=== PATIENT | female | born 1935 | race Caucasian/White ===

== ENCOUNTER 2024-06-26 11:58 | Emergency (ER) | payer MEDICARE, BC, SELFPAY ==
[2024-06-26 11:58] VITALS: BMI 22.6
[2024-06-26 12:30] VITALS: BP 110/62; PULSE 73; RESP 19; TEMP 37.2; O2SAT 97; BMI 22.0
--- NOTE | 2024-06-26 13:21 | EDNOTE_ITS ---
ED Abdominal Pain RME/HPI General Chief Complaint: Abdominal Pain Stated complaint: bladder spasms x1wk on antibiotic for UTI Time seen by provider: 06/26/24 12:28 Arrival date/time: 06/26/24 11:58 RME / HPI RME / HPI narrative: Patient is a 89 year old female presenting to the ED complaining of dysuria x3 days, states she had a phone visit with her PCP and got prescribed with Bactrim. Is currently on third day however states she still feels she has cramps in her her bladder. History includes cystocele, repaired 6 years ago atrophy. Denies fevers, chills, nausea,vomiting, diarrhea, constipation, urinary symptoms. Related Data Home Medications ?Medication ?Instructions ?Recorded ?Confirmed metoprolol succinate 50 mg 50 mg PO BID High Blood Pressure 03/23/14 02/09/20 tablet,extended release 24 hr ##0 (Toprol XL) lansoprazole 30 mg capsule,delayed 30 mg PO QDAY ##0 01/19/16 02/09/20 release (Prevacid) bupropion HCl 300 mg 24 hr tablet, 300 mg PO QAM 05/15/18 02/09/20 extended release ezetimibe 10 mg tablet 10 mg PO QDAY 05/15/18 02/09/20 metformin 500 mg tablet 500 mg PO DAILY 05/15/18 02/09/20 simvastatin 40 mg tablet 1 tab PO DAILY 08/28/18 02/09/20 gabapentin 100 mg capsule 300 mg PO TID 08/02/19 02/09/20 amlodipine 10 mg tablet 10 mg PO QDAY 02/09/20 02/09/20 calcifediol 30 mcg capsule,24 30 mcg PO QDAY 02/09/20 02/09/20 hr,extended release (Rayaldee) Previous Rx's ?Medication ?Instructions ?Recorded ciprofloxacin HCl 500 mg tablet 500 mg PO BID 5 days #10 tabs 06/26/24 tolterodine 2 mg capsule,extended 2 mg PO QDAY #10 caps 06/26/24 release 24 hr (Detrol LA) Allergies Allergy/AdvReac Type Severity Reaction Status Date / Time adhesive tape Allergy Blister Verified 06/26/24 12:01 enalapril Allergy Swelling Verified 06/26/24 12:01 of Lip/Tongue/Throat Review of Systems Review of Systems Narrative Review of Systems: Gen: No fever, no chills, no weight loss EYES: No discharge, no visual changes, no pain HEENT: No ear pain, no congestion, no sore throat PULM: No shortness of breath, no cough, no congestion CV: No chest pain, no dyspnea on exertion, no palpitations GI: No nausea, no vomiting, no diarrhea, no pain, no constipation :+dysuria. No frequency, no urgency, Musc/skel: No joint pain, no back pain Skin: No rash Psyc: No hallucinations, no depression Heme/Lymph: No easy bleeding or bruising tendencies Neuro: No weakness, no headache Past Medical History Past Medical History NEUROLOGIC: Positive Migraine and Head Trauma; Negative Neurological Disorders, Cerebrovascular Accident, Transient Ischemic Attacks (TIA), Dementia, Parkinson's Disease, Seizures, Epilepsy, Spina Bifida, Paralysis, Peripheral Neuropathy, Subdural Hematoma, Spinal Cord Injury or Traumatic Brain Injury CARDIAC: Positive Hypercholesterolemia, Hypertension and Varicose Veins; Negative Cardiac Disorders, Myocardial Infarction, Peripheral Vascular Disease, Congestive Heart Failure, Valvular Heart Disease, Rheumatic Fever, Edema, Pericarditis or Cellulitis RESPIRATORY: Positive Pneumonia (07/2019); Negative Chronic Obstructive Pulmonary Disease (COPD), Asthma, Pulmonary Fibrosis, Tuberculosis, Pulmonary Embolism, Pulmonary Edema or Sleep Apnea GASTROINTESTINAL: Positive Gastrointestinal Disorders, Colitis, Diverticulitis, Hemorrhoids and Gastroesophageal Reflux Disease; Negative Hepatitis, Cirrhosis, Pancreatitis, Celiac Disease, Gall Bladder Disease, Gastrointestinal Bleed, Esophageal Varices, Fraser's Esophagus, Ulcerative Colitis, Ulcer, Colorectal Cancer, Irritable Bowel, Crohn's Disease, Obstructive Bowel, Hiatal Hernia or Obesity GENITOURINARY: Positive Genitourinary Disorders, Renal Disease (kidney stone) and Kidney Stones; Negative Polycystic Kidney Disease, Neurogenic Bladder, Inguinal Hernia, Dialysis, Prostate Cancer or Benign Prostatic Hyperplasia REPRODUCTIVE: Positive Previous Pregnancies and Uterine Prolapse; Negative Breast Cancer, Endometriosis, Pelvic Inflammatory Disease or Testicular Cancer MUSCULOSKELETAL: Positive Musculoskeletal Disorders, Arthritis, Carpal Tunnel Syndrome and Fractures; Negative Bone Cancer, Rheumatoid Arthritis, Osteoporosis, Degenerative Disk Disease, Gout, Scoliosis, Fibromyalgia, Degenerative Joint Disease, Osteomyelitis or Poliovirus ENT: Positive Cataracts and Head Trauma; Negative Glaucoma, Blind, Retinal Detachment, Macular Degeneration, Ear Infection, Deafness or Eye Prosthesis ENDOCRINE: Positive Endocrine Disorders and Diabetes Mellitus Type 2; Negative Diabetes Mellitus Type 1, Hyperthyroidism, Hypothyroidism, Parathyroid Disease, Pituitary Disease, Systemic Lupus Erythematosus, Syndrome of Inappropriate Antidiuretic Hormone (SIADH) or Graves' Disease HEMATOLOGIC: Positive Blood Disorders and Anemia; Negative Leukemia, Hemophilia, Thalassemia, Sickle Cell Disease or Clotting Problems PSYCHO/SOCIAL: Positive Depression and Anxiety; Negative Psychiatric Problems, Schizophrenia, Recreational Drug Use, Bipolar Disorder, Behavior Problems, Self-Mutilation, Attention Deficit Disorder, Attention Deficit Hyperactivity Disorder, Depression, Post Traumatic Stress Disorder or Eating Disorder OTHER HISTORY: Positive Hospitalization, Blood Transfusions, Blood Transfusion Reaction, Chicken Pox, Measles and Pertussis; Negative Autoimmune Disease, Down Syndrome, Autism, Developmental Delay, Shingles, Falls, Anesthesia Reactions, Organ Transplant, Chemotherapy, Radiation Therapy, Hyperbaric Therapy, MRSA, VRSA, Vancomycin-Resistant Enterococci, Breast Cancer, Cervical Cancer, Colorectal Cancer, Lung Cancer, Ovarian Cancer, Prostate Cancer or Testicular Cancer Family History FAMILY HISTORY: Positive Family Psychiatric Problems, Family Cardiac Disorders, Family Cancer and Family Surgery; Negative Family Respiratory Disorders, Family Gastrointestinal Problems or Family Anesthesia Reaction Surgical History SURGICAL: Positive Eye Surgery, Abdominal Surgery, Lumpectomy, Hysterectomy, Tubal Ligation and Section; Negative Cardiac Surgery, Pacemaker, Angiogram, Endocrine Surgery, Thyroidectomy , Ear Surgery, Nephrectomy, Transurethral Resection, Neurologic Surgery, Brain Shunt or Organ Transplant Social History SMOKING STATUS: Current every day smoker SECOND HAND EXPOSURE: Yes SUBSTANCE USE: does not use ED Exam Narrative Physical exam: GEN. APPEARANCE: The patient is alert awake oriented X-3 in minimal distress, lying down comfortably, does not look ill/toxic. Patient has good eye contact. Patient is cooperative. VITALS: All vitals were reviewed and the pulse ox is 97% on room air which is normal according to my interpretation. HEENT: Normocephalic, atraumatic. Pupils are equal and reactive. Oral mucosa is moist. Patent Nares NECK: Supple, nontender, no thyromegaly, no meningismus, no JVD, no step offs CHEST: Symmetrical, atraumatic, and with equal expansion , Nontender on palpation no deformity and no crepitus. CARDIOVASCULAR: Heart regular rhythm no murmur or gallop rub or extra beats. LUNGS: Clear to auscultation bilaterally with symmetrical chest rise. No laboring tachypnea or wheezing. No intercostal subcostal retraction. No rales and no rhonchi. ABDOMEN: Soft, flat, suprapubic tenderness. , no guarding or rebound tenderness. There are no abnormal masses palpated. Active and normal bowel sounds. EXTREMITIES: Nontender. No edema. No cyanosis. Patient is able to move all 4 extremities well, with full ROM and good CSM. SKIN: Warm and dry, no jaundice or rashes noted. MUSCULOSKELETAL: No lubar or midline bony tenderness. There is no CVA tenderness. No paraspinal muscle spasm or tenderness. NEURO: Patient is YU x 4, Cranial nerves II through XII grossly intact. There is no focal neurologic deficits noted. GCS is 15, PNS and CARDIOLOGY TECHNICIAN appear grossly intact. PSYCHIATRIC: Patient is in normal mood and affect, cooperative, no SI or HI or hallucinations. Course Quality Measures none Orders Category Date Time Status UA, C/S IF [Urinalysis, C/S if Indicated] Stat Lab 06/26/24 13:27 Completed Urine Culture Stat Lab 06/26/24 15:08 Ordered Vital Signs Vital signs: Vital Signs Temperature 98.9 F 06/26/24 12:30 Pulse Rate 73 06/26/24 12:30 Respiratory Rate 19 06/26/24 12:30 Blood Pressure 110/62 06/26/24 12:30 Pulse Oximetry (%) 97 06/26/24 12:30 Oxygen Delivery Method Room Air 06/26/24 12:30 Abdominal Pain MDM MDM Narrative MDM Narrative:: Patient has a UTI that has not responded to Bactrim. The specimen was submitted for culture. Patient will be treated for bladder spasms as well. Follow-up with primary care provider. Patient data External records reviewed:: [facility] previous records Clinical information provided by:: patient Social determinants that could affect healthcare access:: none Patient has the following chronic illnesses:: atrophic vaginitis, cystocele and UTI How is presenting disease/condition affected by chronic disease/condition?: exacerbated by Evaluation data The following diagnostics were reviewed and interpreted by me:: lab results Lab and/or radiology exams considered but not ordered:: none Interpretation Summary: see above Medications / Prescriptions Medications or Prescriptions considered but not ordered:: none Medication administrations:: see above Consultations Consultation(s) initiated? (list below): No Diagnosis Differential diagnosis abdominal pain: other Most likely diagnosis given after review of the tests above:: UTI Admission Indicated Admission indicated?: not indicated Admission Request Was there a request for admission?: No Disposition Plan Disposition Plan: Discharge Discharge Attestation Discharge Attestation: The patient and all family members were given an opportunity to ask questions and understood the discharge instructions. Discharge instructions specifically effects, indications for sooner follow up or return to the emergency department, and the expected course of current diagnosis. Patient condition: Stable Discharge Plan Plan Patient Disposition: HOME (Self Care) Patient condition on transfer: Stable Prescriptions/Referrals Prescriptions/Med Rec: New tolterodine [Detrol LA] 2 mg capsule,extended release 24hr 2 mg PO QDAY Qty: 10 0RF ciprofloxacin HCl 500 mg tablet 500 mg PO BID 5 Days Qty: 10 0RF No Action metoprolol succinate [Toprol XL] 50 MG tablet extended release 24 hr 50 mg PO BID Qty: 0 lansoprazole [Prevacid] 30 MG capsule,delayed release(DR/EC) 30 mg PO QDAY Qty: 0 Patient Comments: TO SUPPRESS GASTRIC ACID SECRETION simvastatin 40 mg Tablet 1 tab PO DAILY gabapentin 100 mg Capsule 300 mg PO TID amlodipine 10 mg Tablet 10 mg PO QDAY Rayaldee 30 mcg Capsule,Extended Release 24 Hr 30 mcg PO QDAY metformin 500 mg Tablet 500 mg PO DAILY ezetimibe 10 mg Tablet 10 mg PO QDAY bupropion HCl 300 mg Tablet Extended Release 24 Hr 300 mg PO QAM Referrals: Keith Page MD [Primary Care Provider] - In 1 week Problem List Clinical Impression: Acute UTI, Bladder spasm Patient/Caregiver Discharge Instructions Print Language: Citizen Of [place] Stand Alone Forms: Cornelia Award Info., Patient Portal Info Letter
[2024-06-26 13:35] LABS: Collection Type, Urine Clean Catch
[2024-06-26 14:00] LABS: Bacteria,Urine 4+; Bilirubin,Urine Negative (Negative); Blood,Urine 1+ (Negative); Culture Indicated,Urine Contaminated; Glucose, Urine Negative (Negative); Ketones,Urine Negative (Negative); Leukocyte Esterase,Urine Positive (Negative); Nitrite,Urine Positive (Negative); PH,Urine 6.5 (5.0-7.0); Protein,Urine 2+ (Neg - Trace); RBC,Urine 54 /hpf (0-3); Specific Gravity,Urine 1.013 (1.001-1.035); Squamous Epithelial Cell,Urine 50 /hpf (0-5); Transitional Epi Cells,Urine 1 /hpf (0-5); Urobilinogen,Urine Negative mg/dL (0.0-1.0); WBC,Urine 5051 /hpf (0-5)
[2024-06-26 14:01] LABS: Color,Urine Lt-Yellow (Lt Yel-Yel)
[2024-06-26 14:02] LABS: Clarity,Urine Turbid (Clear/Hazy)
== END 2024-06-26 15:25 | disposition home or self-care (01) ==
PROVIDERS: Emergency Provider Emergency Medicine; PCP Emergency Medicine
DX: N39.0 Urinary tract infection, site not specified (principal); N32.89 Other specified disorders of bladder
CPT/HCPCS: 81001; 87086; 99283

== ENCOUNTER → 2024-06-29 | Outpatient (CLI) | payer MEDICARE, BC, SELFPAY ==
[2024-06-29 13:08] LABS: Collection Type, Urine Clean Catch
[2024-06-29 13:26] LABS: Basophils % (Auto) 0 % (0-2.5); Eosinophils # (Auto) 0.1 Thou/mm3 (0.0-0.5); Eosinophils % (Auto) 2 % (0-10); Hematocrit 35.5 % (36.0-46.0); Hemoglobin 11.4 g/dL (12.0-16.0); Immature Granulocytes % (Auto) 0 % (0-0); Immature Granulocytes Auto 0.02 Thou/mm3 (0.00-0.00); Lymphocytes # (Auto) 2.6 Thou/mm3 (1.0-4.8); Lymphocytes % (Auto) 41 % (10-50); Mean Corpuscular HGB Conc 32.1 g/dl (31.0-37.0); Mean Corpuscular Hemoglobin 28.6 pg (25.0-35.0); Mean Corpuscular Volume 89 fL (80-100); Monocytes # (Auto) 0.5 Thou/mm3 (0.0-0.8); Monocytes % (Auto) 8 % (0-12); Neutrophils # (Auto) 3.2 Thou/mm3 (1.8-7.7); Neutrophils % (Auto) 49 % (37-80); Nucleated Red Blood Cell % 0 /100 WBC (0); Platelet Count 204 Thou/mm3 (140-440); RDW Standard Deviation 46.1 fL (36.4-46.3); Red Blood Count 3.98 Miln/mm3 (4.00-5.20); White Blood Count 6.5 Thou/mm3 (3.6-11.0)
[2024-06-29 13:28] LABS: Bilirubin,Urine Negative (Negative); Blood,Urine Negative (Negative); Clarity,Urine Clear (Clear/Hazy); Color,Urine Yellow (Lt Yel-Yel); Glucose, Urine Negative (Negative); Ketones,Urine Negative (Negative); Leukocyte Esterase,Urine Positive (Negative); Nitrite,Urine Negative (Negative); PH,Urine 6.5 (5.0-7.0); Protein,Urine Negative (Neg - Trace); RBC,Urine 6 /hpf (0-3); Specific Gravity,Urine 1.015 (1.001-1.035); Squamous Epithelial Cell,Urine 12 /hpf (0-5); Urobilinogen,Urine Negative mg/dL (0.0-1.0); WBC,Urine 17 /hpf (0-5)
[2024-06-29 13:45] LABS: Albumin, Serum 4.4 gm/dL (3.4-4.8); Anion Gap 7 (7-16); BUN/Creatinine Ratio 20 Ratio (12-20); Blood Urea Nitrogen 22 mg/dL (9-23); Calcium 9.5 mg/dL (8.3-10.6); Calcium (Corrected) 9.5 mg/dL (8.5-10.1); Carbon Dioxide 26.4 mMol/L (20.0-31.0); Chloride 105 mMol/L (98-107); Creatinine (Component) 1.1 mg/dL (0.6-1.3); Glucose 107 mg/dL (74-106); Osmolality,Calculated 278 (275-295); Phosphorous 3.2 mg/dL (2.4-5.1); Sodium 138 mMol/L (136-145); eGFR 49 See Note
== END | disposition home or self-care (01) ==
LOC: COPL 12:45
PROVIDERS: PCP Emergency Medicine; Referring Provider Internal Medicine Nephrology; Visit Provider Internal Medicine Nephrology
DX: N18.2 Chronic kidney disease, stage 2 (mild) (principal)
CPT/HCPCS: 36415; 80069; 81001; 85025

== ENCOUNTER 2024-07-11 13:42 | Emergency (ER) | payer MEDICARE, BC, SELFPAY ==
[2024-07-11 14:19] VITALS: BP 119/69; PULSE 89; RESP 18; TEMP 36.9; O2SAT 95; BMI 23.1
--- NOTE | 2024-07-11 14:39 | XR_ITS ---
Examination: CT lumbar spine, without contrast. 2-D sagittal reconstructions. 2-D coronal reconstructions. 3-D reconstructions. Date and time of exam:July 11, 2024 1457 hrs. Comparison January 19, 2016 Indications: Patient fell today with injury to the lower back, lower back pain CTDI: vol (mGy):33.2 DLP: (mGycm):930 Technique: Multiple 1.25 mm axial sections of the lumbar spine without intravenous contrast have been obtained. 2-D sagittal and coronal reconstructions have been obtained. 3-D reconstructions have been obtained. Low dose protocols were performed. One or more of the following dose reduction techniques were used; automated exposure control, adjustment of the mA and/or KV according to patient size, use of iterative reconstruction technique. Findings: Severe osteopenia Grade 1 anterolisthesis L5 on S1 Advanced degenerative disc disease L3-L4, L4-L5 Chronic osteoporotic compression L1 with kyphoplasty No acute lumbar fracture Lumbar pedicles, laminae, transverse and posterior spinous processes intact L5-S1 severe spinal stenosis, axial image 79, secondary to the anterolisthesis as well as 6 mm central lumbar disc bulge and facet arthropathy with moderate bilateral L5 ganglionic compression Impression: No acute lumbar fracture
--- NOTE | 2024-07-11 14:39 | XR_ITS ---
Examination: CT chest, without intravenous contrast. Sagittal and coronal 2-D reconstructions. Exam date and time: July 11, 2024 1504 hrs. Indications: Patient fell today with injury to the right chest, right rib and chest pain CTDI:vol (mGy) 11.7 DLP: (mGycm) 402 Technique: Multiple 3.0 mm axial sections of the chest to been obtained. Bone and lung density settings are obtained. Sagittal and coronal 2-D reconstructions have been obtained. Low dose protocols were performed. One or more of the following dose reduction techniques were used; automated exposure control, adjustment of the mA and/or KV according to patient size, use of iterative reconstruction technique. 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
--- NOTE | 2024-07-11 14:41 | PD.EDRME ---
Rapid Medical Screening Exam RME Arrival date/time: 07/11/24 13:42 Chief Complaint: Fall Time Seen by Provider: 07/11/24 13:52 Vital signs: Vital Signs Temperature 98.4 F 07/11/24 14:19 Pulse Rate 89 07/11/24 14:19 Respiratory Rate 18 07/11/24 14:19 Blood Pressure 119/69 07/11/24 14:19 Pulse Oximetry (%) 95 07/11/24 14:19 Oxygen Delivery Method Room Air 07/11/24 14:19 RME Narrative: Mechanical fall last night, c/o right-sided back/rib pain
[2024-07-11] MEDS: IBUPROFEN TAB 400 MG TABLET PO (15:03)
[2024-07-11] MEDS: HYDROcodone/APAP 5/325 TABLET 1 TAB PO (15:03)
[2024-07-11 15:09] LABS: Collection Type, Urine Clean Catch
[2024-07-11 15:23] LABS: Bacteria,Urine Rare; Bilirubin,Urine Negative (Negative); Blood,Urine Negative (Negative); Color,Urine Yellow (Lt Yel-Yel); Glucose, Urine Negative (Negative); Hyaline Casts,Urine < 1 /hpf (0-1); Ketones,Urine Negative (Negative); Leukocyte Esterase,Urine Positive (Negative); Nitrite,Urine Negative (Negative); Protein,Urine Trace (Neg - Trace); RBC,Urine 4 /hpf (0-3); Specific Gravity,Urine 1.016 (1.001-1.035); Squamous Epithelial Cell,Urine 13 /hpf (0-5); Urobilinogen,Urine Negative mg/dL (0.0-1.0); WBC,Urine 20 /hpf (0-5)
[2024-07-11 15:26] LABS: Clarity,Urine Hazy (Clear/Hazy)
[2024-07-11 16:19] VITALS: BP 127/63; PULSE 77; RESP 19; TEMP 36.8; O2SAT 100
--- NOTE | 2024-07-11 17:07 | EDNOTE_ITS ---
ED Fall Injury RME/HPI General Chief Complaint: Fall Stated Complaint: RIGHT SIDE/BACK PAIN S/P FALL LAST NIGHT Time Seen by Provider: 07/11/24 13:52 Source: patient, family, RN notes reviewed and old records reviewed Arrival date/time: 07/11/24 13:42 Mode of arrival: ambulatory Limitations: no limitations RME / HPI RME / HPI Narrative: 89yof presents to ED with daughter for right sided back and rib pain s/p mechanical trip and fall last night. No hematuria, sob, LE weakness or numbness/tingling reported. Patient has taken tylenol and advil with some relief. Related Data Home Medications ?Medication ?Instructions ?Recorded ?Confirmed metoprolol succinate 50 mg 50 mg PO BID High Blood Pressure 03/23/14 02/09/20 tablet,extended release 24 hr ##0 (Toprol XL) lansoprazole 30 mg capsule,delayed 30 mg PO QDAY ##0 01/19/16 02/09/20 release (Prevacid) bupropion HCl 300 mg 24 hr tablet, 300 mg PO QAM 05/15/18 02/09/20 extended release ezetimibe 10 mg tablet 10 mg PO QDAY 05/15/18 02/09/20 metformin 500 mg tablet 500 mg PO DAILY 05/15/18 02/09/20 simvastatin 40 mg tablet 1 tab PO DAILY 08/28/18 02/09/20 gabapentin 100 mg capsule 300 mg PO TID 08/02/19 02/09/20 amlodipine 10 mg tablet 10 mg PO QDAY 02/09/20 02/09/20 calcifediol 30 mcg capsule,24 30 mcg PO QDAY 02/09/20 02/09/20 hr,extended release (Rayaldee) Previous Rx's ?Medication ?Instructions ?Recorded tolterodine 2 mg capsule,extended 2 mg PO QDAY #10 caps 06/26/24 release 24 hr (Detrol LA) Allergies Allergy/AdvReac Type Severity Reaction Status Date / Time adhesive tape Allergy Severe Blister Verified 07/11/24 13:45 enalapril Allergy Severe Swelling Verified 07/11/24 13:45 of Lip/Tongue/Throat Review of Systems Review of Systems Systems Reviewed: All systems reviewed, normal except as documented Cardiovascular Cardiovascular: Denies chest pain and Denies dyspnea Respiratory Respiratory: Denies dyspnea Musculoskeletal Musculoskeletal: Denies arthralgias, Reports back pain, Denies numbness and Denies tingling Comments: Reports rib pain Neurologic Neurologic: Denies localized weakness, Denies numbness and Denies tingling Past Medical History Past Medical History NEUROLOGIC: Positive Migraine and Head Trauma; Negative Neurological Disorders, Cerebrovascular Accident, Transient Ischemic Attacks (TIA), Dementia, Parkinson's Disease, Seizures, Epilepsy, Spina Bifida, Paralysis, Peripheral Neuropathy, Subdural Hematoma, Spinal Cord Injury or Traumatic Brain Injury CARDIAC: Positive Hypercholesterolemia, Hypertension and Varicose Veins; Negative Cardiac Disorders, Myocardial Infarction, Peripheral Vascular Disease, Congestive Heart Failure, Valvular Heart Disease, Rheumatic Fever, Edema, Pericarditis or Cellulitis RESPIRATORY: Negative Chronic Obstructive Pulmonary Disease (COPD), Asthma, Pneumonia, Pulmonary Fibrosis, Tuberculosis, Pulmonary Embolism, Pulmonary Edema or Sleep Apnea GASTROINTESTINAL: Positive Gastrointestinal Disorders, Colitis, Diverticulitis, Hemorrhoids and Gastroesophageal Reflux Disease; Negative Hepatitis, Cirrhosis, Pancreatitis, Celiac Disease, Gall Bladder Disease, Gastrointestinal Bleed, Esophageal Varices, Fraser's Esophagus, Ulcerative Colitis, Ulcer, Colorectal Cancer, Irritable Bowel, Crohn's Disease, Obstructive Bowel, Hiatal Hernia or Obesity GENITOURINARY: Positive Genitourinary Disorders and Kidney Stones; Negative Renal Disease, Polycystic Kidney Disease, Neurogenic Bladder, Inguinal Hernia, Dialysis, Prostate Cancer or Benign Prostatic Hyperplasia REPRODUCTIVE: Positive Previous Pregnancies and Uterine Prolapse; Negative Breast Cancer, Endometriosis, Pelvic Inflammatory Disease or Testicular Cancer MUSCULOSKELETAL: Positive Musculoskeletal Disorders, Arthritis, Carpal Tunnel Syndrome and Fractures; Negative Bone Cancer, Rheumatoid Arthritis, Osteoporosis, Degenerative Disk Disease, Gout, Scoliosis, Fibromyalgia, Degenerative Joint Disease, Osteomyelitis or Poliovirus ENT: Positive Cataracts and Head Trauma; Negative Glaucoma, Blind, Retinal Detachment, Ear Infection, Deafness or Eye Prosthesis ENDOCRINE: Positive Endocrine Disorders; Negative Diabetes Mellitus Type 1, Diabetes Mellitus Type 2, Hyperthyroidism, Hypothyroidism, Parathyroid Disease, Pituitary Disease, Systemic Lupus Erythematosus, Syndrome of Inappropriate Antidiuretic Hormone (SIADH) or Graves' Disease HEMATOLOGIC: Positive Blood Disorders and Anemia; Negative Sickle Cell Disease or Clotting Problems PSYCHO/SOCIAL: Positive Depression and Anxiety; Negative Psychiatric Problems, Schizophrenia, Recreational Drug Use, Bipolar Disorder, Behavior Problems, Self-Mutilation, Attention Deficit Disorder, Attention Deficit Hyperactivity Disorder, Depression, Post Traumatic Stress Disorder or Eating Disorder OTHER HISTORY: Positive Hospitalization, Blood Transfusions, Blood Transfusion Reaction, Chicken Pox, Measles and Pertussis; Negative Autoimmune Disease, Down Syndrome, Autism, Developmental Delay, Shingles, Falls, Anesthesia Reactions, Organ Transplant, Chemotherapy, Radiation Therapy, Hyperbaric Therapy, MRSA, VRSA, Vancomycin-Resistant Enterococci, Breast Cancer, Cervical Cancer, Colorectal Cancer, Lung Cancer, Ovarian Cancer, Prostate Cancer or Testicular Cancer Family History FAMILY HISTORY: Positive Family Psychiatric Problems, Family Cardiac Disorders, Family Cancer and Family Surgery; Negative Family Respiratory Disorders, Family Gastrointestinal Problems or Family Anesthesia Reaction Surgical History SURGICAL: Positive Eye Surgery, Abdominal Surgery, Lumpectomy, Hysterectomy, Tubal Ligation and Section; Negative Cardiac Surgery, Pacemaker, Angiogram, Endocrine Surgery, Thyroidectomy, Ear Surgery, Nephrectomy, Transurethral Resection, Neurologic Surgery, Brain Shunt or Organ Transplant Social History SMOKING STATUS: Current some day smoker SUBSTANCE USE: does not use Travel History EBOLA RISK: No ED Exam General Limitations: Present no limitations General appearance: Present alert and in no apparent distress Head Head exam: Present atraumatic and normocephalic Eye Eye exam: Present normal appearance, PERRL and EOMI ENT ENT exam: Present normal exam and mucous membranes moist Neck Neck exam: Present normal inspection and full ROM; Absent tenderness Chest Chest inspection: Present normal inspection and symmetric chest wall rise; Absent tenderness Respiratory Respiratory exam: Present normal lung sounds bilaterally; Absent respiratory distress Cardiovascular Cardiovascular exam: Present regular rate and normal rhythm Abdominal Exam Abdominal exam: Present soft; Absent distention or tenderness Extremities Exam Extremities exam: Present normal inspection and full ROM; Absent tenderness Back Exam Back exam: Present tenderness (Right lower thoracic/lumbar); Absent vertebral tenderness Neurological Exam Neurological exam: Present alert and oriented X3 Psychiatric Psychiatric exam: Present normal affect and normal mood Skin Skin exam: Present warm, dry, intact and normal color Course Quality Measures none Orders Category Date Time Status CT chest wo con Stat Exams 07/11/24 14:[address] lumbar spine wo con Stat Exams 07/11/24 14:39 Completed UA [Urinalysis] Stat Lab 07/11/24 14:48 Completed HYDROcodone*/APAP 5/325 [[place]er 5/325] Med 07/11/24 14:39 Discontinued 1 tab PO X1 ONE Ibuprofen Tab [Motrin Tab] Med 07/11/24 14:41 Discontinued 400 mg PO X1 ONE Vital Signs Vital signs: Vital Signs Temperature 98.4 F 07/11/24 14:19 Pulse Rate 89 07/11/24 14:19 Respiratory Rate 18 07/11/24 14:19 Blood Pressure 119/69 07/11/24 14:19 Pulse Oximetry (%) 95 07/11/24 14:19 Oxygen Delivery Method Room Air 07/11/24 14:19 Fall MDM Narrative MDM Narrative:: 89yof presents to ED with daughter for right sided back and rib pain s/p mechanical trip and fall last night. No hematuria, sob, LE weakness or numbness/tingling reported. Patient has taken tylenol and advil with some relief. Multiple rib fractures on CT. Patient is non-toxic appearing, vitals are stable. No evidence of respiratory distress or hypoxia. Encouraged rest, ice application, pain mgmt prn. Close pcp f/u recommended. Stable for dc, RTED precautions given. Patient data External records reviewed:: [facility] previous records (06/26/24 ED visit for UTI) Clinical information provided by:: patient and family Social determinants that could affect healthcare access:: none Patient has the following chronic illnesses:: osteoporosis, arthritis How is presenting disease/condition affected by chronic disease/condition?: exacerbated by Evaluation data The following diagnostics were reviewed and interpreted by me:: lab results and radiology exam(s) Lab and/or radiology exams considered but not ordered:: none Interpretation Summary: UA negative for blood Lumbar CT: no fracture Chest CT: Impression: 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, recommend repeat thyroid sonography follow-up Thoracic aorta pulmonary arteries intact No hemopericardium, pneumothorax pulmonary contusion or hemothorax Acute fractures right 10th, 11th, 12th ribs posterior laterally without displacement Dictated By: Jhonatan Harrell MD Medications / Prescriptions Medications or Prescriptions considered but not ordered:: no antibiotics recommended at this time Medication administrations:: Medication Administration History Discontinued Medications Hydrocodone Bitart/Acetaminophen (Hydrocodone/Apap 5/325 Tablet) 1 tab PO X1 ONE Stop: 07/11/24 14:40 Last Admin: 07/11/24 15:03 Dose: 1 tab Documented By: Ibuprofen (Ibuprofen Tab 400 Mg Tablet) 400 mg PO X1 ONE Stop: 07/11/24 14:42 Last Admin: 07/11/24 15:03 Dose: 400 mg Documented By: above medications administered in ED Consultations Consultation(s) initiated? (list below): No Diagnosis Fall Differential Diagnosis: other (fracture, sprain, strain, contusion, msk pain) Most likely diagnosis given after review of the tests above:: rib fractures Admission Indicated Admission indicated?: not indicated Admission Request Was there a request for admission?: No Disposition Plan Disposition Plan: Discharge Discharge Attestation Discharge Attestation: The patient and all family members were given an opportunity to ask questions and understood the discharge instructions. Discharge instructions specifically effects, indications for sooner follow up or return to the emergency department, and the expected course of current diagnosis. Patient condition: Stable Discharge Plan Plan Patient Disposition: HOME (Self Care) Patient condition on transfer: Stable Prescriptions/Referrals Prescriptions/Med Rec: No Action metoprolol succinate [Toprol XL] 50 MG tablet extended release 24 hr 50 mg PO BID Qty: 0 lansoprazole [Prevacid] 30 MG capsule,delayed release(DR/EC) 30 mg PO QDAY Qty: 0 Patient Comments: TO SUPPRESS GASTRIC ACID SECRETION simvastatin 40 mg Tablet 1 tab PO DAILY gabapentin 100 mg Capsule 300 mg PO TID amlodipine 10 mg Tablet 10 mg PO QDAY Rayaldee 30 mcg Capsule,Extended Release 24 Hr 30 mcg PO QDAY metformin 500 mg Tablet 500 mg PO DAILY ezetimibe 10 mg Tablet 10 mg PO QDAY bupropion HCl 300 mg Tablet Extended Release 24 Hr 300 mg PO QAM tolterodine [Detrol LA] 2 mg capsule,extended release 24hr 2 mg PO QDAY Qty: 10 0RF Referrals: Keith Page MD [Primary Care Provider] - In 1 week Problem List Clinical Impression: Multiple rib fractures Patient/Caregiver Discharge Instructions Education Materials: ED Rib Fracture Print Language: Polish Stand Alone Forms: Cornelia Award Info., Patient Portal Info Letter PA/CALENDER MACHINE OPERATOR HELPER Supervising Physician MICHAEL/CALENDER MACHINE OPERATOR HELPER Supervising Physician: Jessica
== END 2024-07-11 17:15 | disposition home or self-care (01) ==
PROVIDERS: Physician Assistant; Emergency Provider Emergency Medicine; PCP Emergency Medicine
DX: S22.41XA Multiple fractures of ribs, right side, initial encounter for closed fracture (principal); R22.2 Localized swelling, mass and lump, trunk; S39.92XA Unspecified injury of lower back, initial encounter; W01.0XXA Fall on same level from slipping, tripping and stumbling without subsequent striking against object, initial encounter
CPT/HCPCS: 71250; 72131; 81001; 99284; A9270

== ENCOUNTER → 2024-12-28 | Outpatient (CLI) | payer MEDICARE, BC, SELFPAY ==
[2024-12-28 16:39] LABS: Basophils % (Auto) 0 % (0-2.5); Eosinophils # (Auto) 0.1 Thou/mm3 (0.0-0.5); Eosinophils % (Auto) 1 % (0-10); Hematocrit 32.5 % (36.0-46.0); Hemoglobin 10.9 g/dL (12.0-16.0); Immature Granulocytes % (Auto) 0 % (0-0); Immature Granulocytes Auto 0.02 Thou/mm3 (0.00-0.00); Lymphocytes % (Auto) 28 % (10-50); Mean Corpuscular HGB Conc 33.5 g/dl (31.0-37.0); Mean Corpuscular Hemoglobin 28.9 pg (25.0-35.0); Mean Corpuscular Volume 86 fL (80-100); Monocytes # (Auto) 0.6 Thou/mm3 (0.0-0.8); Monocytes % (Auto) 9 % (0-12); Neutrophils # (Auto) 4.4 Thou/mm3 (1.8-7.7); Neutrophils % (Auto) 62 % (37-80); Nucleated Red Blood Cell % 0 /100 WBC (0); Platelet Count 181 Thou/mm3 (140-440); RDW Standard Deviation 46.9 fL (36.4-46.3); Red Blood Count 3.77 Miln/mm3 (4.00-5.20); White Blood Count 7.2 Thou/mm3 (3.6-11.0)
[2024-12-28 16:59] LABS: Albumin, Serum 4.1 gm/dL (3.4-4.8); Anion Gap 11 (7-16); BUN/Creatinine Ratio 20 Ratio (12-20); Blood Urea Nitrogen 20 mg/dL (9-23); Calcium 8.9 mg/dL (8.3-10.6); Calcium (Corrected) 8.9 mg/dL (8.5-10.1); Carbon Dioxide 26.3 mMol/L (20.0-31.0); Chloride 108 mMol/L (98-107); Glucose 151 mg/dL (74-106); Osmolality,Calculated 294 (275-295); Phosphorous 3.5 mg/dL (2.4-5.1); Potassium 4.5 mMol/L (3.4-5.1); Sodium 145 mMol/L (136-145); eGFR 55 See Note
== END | disposition home or self-care (01) ==
LOC: COPL 14:46
PROVIDERS: PCP Emergency Medicine; Referring Provider Internal Medicine Nephrology; Visit Provider Internal Medicine Nephrology
DX: I12.9 Hypertensive chronic kidney disease with stage 1 through stage 4 chronic kidney disease, or unspecified chronic kidney disease (principal); N18.2 Chronic kidney disease, stage 2 (mild)
CPT/HCPCS: 36415; 80069; 81001; 85025

== ENCOUNTER → 2025-01-10 | Outpatient (CLI) | payer MEDICARE, BC, SELFPAY ==
--- NOTE | 2025-01-10 10:00 | XR_ITS ---
Examination: CT lumbar spine, post intravenous contrast 2-D sagittal reconstructions. 2-D coronal reconstructions. 3-D reconstructions. Date and time of exam:January 10, 2025 1048 hours INDICATIONS: Lower back pain beginning 2 years ago CTDI: vol (mGy):15.4 DLP: (mGycm):395 Technique: Multiple 1.25 mm axial sections of the lumbar spine without intravenous contrast have been obtained. 60 cc [id number] 2-D sagittal and coronal reconstructions have been obtained. 3-D reconstructions have been obtained. Low dose protocols were performed. One or more of the following dose reduction techniques were used; automated exposure control, adjustment of the mA and/or KV according to patient size, use of iterative reconstruction technique. Findings: Severe osteopenia Chronic osteoporotic compression L1 with kyphoplasty Grade 1 anterolisthesis L5 on S1 Advanced disc narrowing L4-L5 L5-S1 severe overall spinal stenosis, axial image 89, secondary to the grade 1 anterolisthesis, 8mm central lumbar disc bulge, facet arthropathy and thickening of ligamentum flavum producing moderate left and mild right L5 ganglionic compression L4-L5 2 mm central lumbar disc bulge L3-L4 no disc protrusion L2-L3 no disc protrusion L1-L2 no disc protrusion IMPRESSION: Severe osteopenia Chronic osteoporotic compression L1 vertebral body with kyphoplasty L5-S1 severe overall spinal stenosis as above
--- NOTE | 2025-01-10 10:30 | XR_ITS ---
Examination: CT thoracic spine with intravenous contrast, 2-D sagittal reconstructions. 2-D coronal reconstructions. 3-D reconstructions. Date and time of exam:January 10, 2025 1104 hours INDICATIONS: Mid back pain several years CTDI: vol (mGy):15.6 DLP: (mGycm):177 Technique: Multiple 1.25 mm axial sections of the thoracic spine post intravenous administration 60 cc Isovue-[id number] 2-D sagittal and coronal reconstructions have been obtained. 3-D reconstructions have been obtained. Low dose protocols were performed. One or more of the following dose reduction techniques were used; automated exposure control, adjustment of the mA and/or KV according to patient size, use of iterative reconstruction technique. Findings: Severe osteopenia No acute thoracic fracture Mild diffuse thoracic disc narrowing Axial images demonstrate no focal soft tissue thoracic disc protrusion T5-T6 3 mm central left paracentral calcified osteophyte disc complex but no significant impingement upon the thoracic cord IMPRESSION: Severe osteopenia Mild diffuse thoracic degenerative disc disease Moderate thoracic spondylosis T5-T6 3 mm central left paracentral calcified osteophyte disc complex
== END | disposition home or self-care (01) ==
LOC: CCTX 10:14
PROVIDERS: PCP Emergency Medicine; Referring Provider Emergency Medicine; Visit Provider Emergency Medicine
DX: M48.07 Spinal stenosis, lumbosacral region (principal); M85.88 Other specified disorders of bone density and structure, other site; M47.816 Spondylosis without myelopathy or radiculopathy, lumbar region; M48.56XA Collapsed vertebra, not elsewhere classified, lumbar region, initial encounter for fracture; M25.78 Osteophyte, vertebrae; M51.34 Other intervertebral disc degeneration, thoracic region; M47.814 Spondylosis without myelopathy or radiculopathy, thoracic region
CPT/HCPCS: 72129; 72132; A4649; Q9967

== ENCOUNTER → 2025-03-08 | Outpatient (CLI) | payer MEDICARE, BC, SELFPAY ==
[2025-03-08 14:02] LABS: Basophils # (Auto) 0.0 Thou/mm3 (0.0-0.2); Basophils % (Auto) 1 % (0-2.5); Eosinophils # (Auto) 0.1 Thou/mm3 (0.0-0.5); Eosinophils % (Auto) 2 % (0-10); Hematocrit 34.3 % (36.0-46.0); Hemoglobin 11.3 g/dL (12.0-16.0); Immature Granulocytes Auto 0.01 Thou/mm3 (0.00-0.00); Lymphocytes # (Auto) 2.1 Thou/mm3 (1.0-4.8); Lymphocytes % (Auto) 34 % (10-50); Mean Corpuscular HGB Conc 32.9 g/dl (31.0-37.0); Mean Corpuscular Hemoglobin 29.0 pg (25.0-35.0); Mean Corpuscular Volume 88 fL (80-100); Monocytes # (Auto) 0.6 Thou/mm3 (0.0-0.8); Monocytes % (Auto) 9 % (0-12); Neutrophils # (Auto) 3.3 Thou/mm3 (1.8-7.7); Neutrophils % (Auto) 54 % (37-80); Nucleated Red Blood Cell # 0.00 Thou/mm3 (0.00-0.00); Nucleated Red Blood Cell % 0 /100 WBC (0); Platelet Count 179 Thou/mm3 (140-440); RDW Standard Deviation 48.0 fL (36.4-46.3); Red Blood Count 3.89 Miln/mm3 (4.00-5.20); White Blood Count 6.1 Thou/mm3 (3.6-11.0)
[2025-03-08 14:11] LABS: Albumin, Serum 4.2 gm/dL (3.4-4.8); Anion Gap 7 (7-16); BUN/Creatinine Ratio 12 Ratio (12-20); Blood Urea Nitrogen 13 mg/dL (9-23); Calcium 9.3 mg/dL (8.3-10.6); Calcium (Corrected) 9.3 mg/dL (8.5-10.1); Carbon Dioxide 28.0 mMol/L (20.0-31.0); Chloride 108 mMol/L (98-107); Creatinine (Component) 1.1 mg/dL (0.6-1.3); Glucose 120 mg/dL (74-106); Osmolality,Calculated 286 (275-295); Phosphorous 4.0 mg/dL (2.4-5.1); Potassium 4.2 mMol/L (3.4-5.1); Sodium 143 mMol/L (136-145); eGFR 49 See Note
[2025-03-08 15:26] LABS: Collection Type, Urine Clean Catch
[2025-03-08 17:00] LABS: Bacteria,Urine 1+; Bilirubin,Urine Negative (Negative); Blood,Urine Negative (Negative); Clarity,Urine Clear (Clear/Hazy); Color,Urine Yellow (Lt Yel-Yel); Glucose, Urine Negative (Negative); Hyaline Casts,Urine < 1 /hpf (0-1); Ketones,Urine Negative (Negative); Leukocyte Esterase,Urine Positive (Negative); Nitrite,Urine Negative (Negative); PH,Urine 6.0 (5.0-7.0); Protein,Urine Trace (Neg - Trace); RBC,Urine 5 /hpf (0-3); Specific Gravity,Urine 1.023 (1.001-1.035); Squamous Epithelial Cell,Urine 9 /hpf (0-5); Urobilinogen,Urine Negative mg/dL (0.0-1.0); WBC,Urine 4 /hpf (0-5)
== END | disposition home or self-care (01) ==
LOC: COPL 13:19
PROVIDERS: PCP Family Medicine; Referring Provider Internal Medicine Nephrology; Visit Provider Internal Medicine Nephrology
DX: I12.9 Hypertensive chronic kidney disease with stage 1 through stage 4 chronic kidney disease, or unspecified chronic kidney disease (principal); N18.31 Chronic kidney disease, stage 3a; J44.9 Chronic obstructive pulmonary disease, unspecified
CPT/HCPCS: 36415; 80069; 81001; 85025

== ENCOUNTER → 2025-05-25 | Outpatient (CLI) | payer MEDICARE, BC, SELFPAY ==
--- NOTE | 2025-05-25 12:45 | XR_ITS ---
Examination: Hand, right Technique: Hand AP, oblique, lateral 3 views Date and time of exam: May 25, 2025, 1227 hours INDICATIONS: Right hand pain 1 month FINDINGS: Severe osteopenia Significant diffuse arthritic change, severe first carpometacarpal joint, severe distal interphalangeal joint second digit No lucia erosive arthritis No fractures Marked narrowing radiocarpal and intercarpal joints as well as metacarpal phalangeal joints IMPRESSION: Severe diffuse arthritic change as above
--- NOTE | 2025-05-25 12:45 | XR_ITS ---
Examination: Wrist, right 3 views Technique: Wrist AP, oblique, lateral 3 views Date and time of exam: May 25, 2025, 1327 hours INDICATION: Right wrist pain 1 month FINDINGS: Severe osteopenia Significant diffuse arthritic change, severe involving the first carpometacarpal joint Significant narrowing radiocarpal and intercarpal joints No definite erosive arthritis No fracture IMPRESSION: Significant arthritic change as above
== END | disposition home or self-care (01) ==
PROVIDERS: PCP Emergency Medicine; Referring Provider Nurse Practitioner Gerontology; Visit Provider Nurse Practitioner Gerontology
DX: M13.841 Other specified arthritis, right hand (principal); M13.831 Other specified arthritis, right wrist
CPT/HCPCS: 73110; 73130